=== PATIENT | female | born 1960 | race Caucasian/White ===

== ENCOUNTER 2020-12-21 14:53 | Emergency (ER) | payer OTHER ==
[~2020-12-21 14:53] MED LIST: CEFUROXIME500 MG PO; CHRONULAC20 GM/30 M PO; ENULOSE10 GM/15 M PO; IBUPROFEN400 MG PO; LASIX40 MG PO; LIBRIUM CAP 1010 MG PO; OMEPRAZOLE40 MG PO; SPIRONOLACTONE100 MG PO; VENTOLIN HFA 66.7 GM INH; VOLTAREN100 GM TP
[2020-12-21] MEDS ORDERED: HYDROCODON-ACE1 EAC4 PO (18:13)
== END 2020-12-21 19:20 | disposition home or self-care (01) ==
LOC: ER1 14:53
DX: S32.512A Fracture of superior rim of left pubis, initial encounter for closed fracture (principal); I10 Essential (primary) hypertension; F17.200 Nicotine dependence, unspecified, uncomplicated; Z88.8 Allergy status to other drugs, medicaments and biological substances; W01.0XXA Fall on same level from slipping, tripping and stumbling without subsequent striking against object, initial encounter; Y92.009 Unspecified place in unspecified non-institutional (private) residence as the place of occurrence of the external cause
CPT/HCPCS: 72192; 73502; 73552; 96372; 99284; J2270